=== PATIENT | female | born 1950 | race Hispanic/Latino ===

== ENCOUNTER 2019-09-27 17:02 | Emergency (ER) | payer OTHER ==
[2019-09-27] MEDS ORDERED: MORPHINE 2 MG/ML SYR ONE (18:04)
[2019-09-27] MEDS ORDERED: ONDANSETRON 4 MG/2 ML VIAL ONE (18:04)
[2019-09-27] MEDS ORDERED: NA CHLORIDE 0.9% 1,000 ML ONE (18:04)
[2019-09-27 18:12] LABS: Absolute Lymphocytes (CBC) 1.8 K/uL (0.7-4.9); Basophils % 0.6 % (0-1.3); Hematocrit 40.9 % (36.0-45.0); Lymphocytes % 15.3 % (15.3-44.8); MPV 8.1 fL (7.6-11.3)
[2019-09-27 18:21] LABS: Potassium 3.3 mmol/L (3.5-5.1)
--- NOTE | 2019-09-27 18:34 | RAD REPORT ---
EXAM DESCRIPTION: RAD - Femur Left - 09/27/2019 6:24 pm CLINICAL HISTORY: PAIN Fall, pain COMPARISON: No comparisons FINDINGS: No fracture or dislocation evident.
--- NOTE | 2019-09-27 18:35 | RAD REPORT ---
EXAM DESCRIPTION: RAD - Humerus Left - 09/27/2019 6:24 pm CLINICAL HISTORY: PAIN COMPARISON: No comparisons FINDINGS: Fracture is seen involving the left scapula inferiorly. Minimally displaced left lateral t horacic rib fracture also possible. The left humerus appears intact.
--- NOTE | 2019-09-27 19:01 | RAD REPORT ---
EXAM DESCRIPTION: CT - Head C Spine Cap Sage Cotter - 09/27/2019 6:43 pm CLINICAL HISTORY: Trauma, head and neck injury. Chest, abdomen and pelvis pain. Fall injury, back pain COMPARISON: No comparisons TECHNIQUE: CT head without contrast. CT cervical spine without contrast with coronal and sagittal reformatted images. CT chest, abdomen and pelvis with IV contrast (approximately 100 mL nonionic IV contrast) with jessica l and sagittal reformatted images of the spine. All CT scans are performed using dose optimization technique as appropriate and may include automated exposure control or mA/KV adjustment according to patient size. FINDINGS: CT HEAD WITHOUT CONTRAST: No intracranial hemorrhage, hydrocephalus or extra-axial fluid collection. Generalized brain atrophy is noted. No areas of brain edema or midline shift. The paranasal sinuses and mastoids are clear. The calvarium is intact. CT CERVICAL SPINE WITHOUT CONTRAST: No fracture or subluxation. The prevertebral soft tissues are normal in thickness. CT CHEST, ABDOMEN, PELVIS WITH CONTRAST: A fracture of the inferior aspect of the scapula is present with thickening of the adjacent tissues.I n addition, there is a fracture lateral fifth, sixth and seventh left ribs.No pneumothorax or pericar dial/pleural fluid. No evidence of intra-abdominal visceral injury, free fluid or free air. 17 mm right adrenal mass is p resent, nonspecific. No concerning pelvic findings. Moderate lumbosacral degenerative changes. Vacuum disc degeneration is present at L5-S1. IMPRESSION: Fracture of the inferior scapula with surrounding soft tissue thickening. Fracture left lateral fifth, sixth and seventh ribs without pneumothorax.
--- NOTE | 2019-09-27 20:39 | ER ---
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 Negative LOC. Care prior to arrival: None. 17:28 Acuity: HEATHER 4 hb 17:28 Method Of Arrival: Ambulatory 17:41 Transition of care: patient was not received from another setting of care. Onset of symptoms was September 27, 2019. Risk Assessment: Do you want to hurt yourself or someone else? Patient reports no desire to harm self or others. Initial Sepsis Screen: Does the patient meet any 2 criteria? No. Patient's initial sepsis screen is negative. Does the patient have a suspected source of infection? No. Patient's initial sepsis screen is negative. 17:41 Mechanism of Injury: Fall down 7 steps. Trauma event details: Injury occurred in the [facility], Injury occurred: at home. Injury occurred: September 27, 2019 Injury occurred at: 15:30. Triage Assessment: 19:28 General: Appears in no apparent distress. Behavior is calm, cooperative. Pain: rv Complains of pain in back and left arm and left leg and pelvis and buttocks. Trauma Activation: Not Applicable Physician: ED Physician; Name: ; Notified At: ; Arrived At: Physician: General Surgeon; Name: ; Notified At: ; Arrived At: Physician: Radiology; Name: ; Notified At: ; Arrived At: Physician: Respiratory; Name: ; Notified At: ; Arrived At: Physician: Lab; Name: ; Notified At: ; Arrived At: Historical: - Allergies: 17:30 Sulfa (Sulfonamide Antibiotics); hb - Immunization history:: Adult Immunizations up to date. - Coronavirus screen:: The patient has NOT traveled to [place] in the past 14 days. The patient has NOT had contact with known/suspected case of Coronavirus? Proceed with normal triage procedures. - Social history:: Smoking status: Patient denies any tobacco usage or history of. - Ebola Screening: : No symptoms or risks identified at this time. Screenin:42 Abuse screen: Denies threats or abuse. Denies injuries from another. Nutritional sv screening: No deficits noted. Tuberculosis screening: No symptoms or risk factors identified. Fall Risk None identified. Primary Survey: 17:41 NO uncontrolled hemorrhage observed. A: The patient is alert. Airway: patent, No sv supplemental oxygen in use on arrival. Oral cavity: clear, Trachea midline. Breathing/Chest: Respiratory pattern: regular, Respiratory effort: spontaneous, unlabored, Chest inspection: symmetrical rise and fall of the chest. Circulation: Pulses: palpable right radial artery and left radial artery. Skin color: pink, Skin temperature: warm, dry. Disability Alert. Exposure/Environment: All clothing and personal items were removed. Forensic evidence collection is not deemed to be indicated at this time. Items placed in patient belonging bag. There is no evidence of uncontrolled external bleeding. No obvious injuries are noted at this time. A warming method has been applied: A warm blanket has been provided to the patient. 18:00 Reassessment Airway Airway Patent Oxygen No O2 Oral cavity Clear Trachea Midline sv Breathing/Chest Respiratory pattern Regular Respiratory effort Spontaneous Unlabored Chest inspection Symmetrical Circulation Pulses Palpable Color [place] Temperature Warm Dry Disability Alert. Secondary Survey: 17:41 HEENT: No deficits noted. Gastrointestinal: No deficits noted. : No deficits noted. sv No signs and/or symptoms were reported regarding the genitourinary system. Musculoskeletal: Circulation, motion, and sensation intact. Range of motion: limited in left shoulder, left elbow and left hip Swelling present in left gluteal fold and left hip. Injury Description: Bruise sustained to left hip and left gluteal fold is purple. Assessment: 19:28 Reassessment: Patient appears in no apparent distress at this time. Patient is alert, rv oriented x 3, equal unlabored respirations, skin warm/dry/pink. PAIN IS BETTER COMPARED TO PRIOR. UPDATED ON THE PLAN OF CARE. CLAUDE ALREADY TALKED TO THE PATIENT. STILL AWAITING OFFICIAL RESULT OF RADIOLOGY. 20:56 Reassessment: Patient appears in no apparent distress at this time. Patient and/or rv family updated on plan of care and expected duration. Pain level reassessed. Patient is alert, oriented x 3, equal unlabored respirations, skin warm/dry/pink. GIVEN TRAMADOL BEFORE DISCHARGE. SLING APPLIED TO THE LEFT ARM. GIVEN INSTRUCTIONS FOR INCENTIVE SPIROMETER. CLAUDE EXPLAINED THE RESULTS AND PLAN OF CARE TO PATIENT AND RELATIVE. DISCHARGED AMBULATORY. REFUSED BEING DISCHARGE ON A WHEELCHAIR. Vital Signs: 17:29 BP 186 / 99; Pulse 89; Resp 16; Temp 98.4; Pulse Ox 100% on R/A; Weight 51.71 kg; hb Height 5 ft. 1 in. (154.94 cm); Pain 9/10; 18:08 BP 142 / 63; Pulse 107; Resp 16; Temp 98.2; Pulse Ox 100% ; sv 19:00 BP 156 / 59; Pulse 97; Resp 16; Pulse Ox 100% ; sv 20:00 BP 154 / 55; Pulse 95; Resp 19; Pulse Ox 100% on R/A; rv 20:55 BP 133 / 58; Pulse 95; Resp 18; Pulse Ox 100% ; rv 17:29 Body Mass Index 21.54 (51.71 kg, 154.94 cm) hb Sharron Coma Score: 17:42 Eye Response: spontaneous(4). Verbal Response: oriented(5). Motor Response: obeys sv commands(6). Total: 15. 18:08 Eye Response: spontaneous(4). Verbal Response: oriented(5). Motor Response: obeys sv commands(6). Total: 15. 19:00 Eye Response: spontaneous(4). Verbal Response: oriented(5). Motor Response: obeys sv commands(6). Total: 15. Trauma Score (Adult): 17:42 Eye Response: spontaneous(1); Verbal Response: oriented(1); Motor Response: obeys sv commands(2); Systolic BP: > 89 mm Hg(4); Respiratory Rate: 10 to 29 per min(4); [place] Score: 15; Trauma Score: 12 18:08 Eye Response: spontaneous(1); Verbal Response: oriented(1); Motor Response: obeys sv commands(2); Systolic BP: > 89 mm Hg(4); Respiratory Rate: 10 to 29 per min(4); [place] Score: 15; Trauma Score: 12 19:00 Eye Response: spontaneous(1); Verbal Response: oriented(1); Motor Response: obeys sv commands(2); Systolic BP: > 89 mm Hg(4); Respiratory Rate: 10 to 29 per min(4); [place] Score: 15; Trauma Score: 12 ED Course: 17:10 Patient arrived in ED. mr 17:29 Triage completed. hb 17:29 Arm band placed on. hb 17:34 Claude Benítez NP is PHCP. pm1 17:34 Carlos Aquino MD is Attending Physician. pm1 17:40 Radha Hanson, RN is Primary Nurse. sv 17:42 Patient has correct armband on for positive identification. Placed in gown. Bed in low sv position. Call light in reach. Door closed. Head of bed elevated. 17:42 Patient maintains SpO2 saturation greater than 95% on room air. sv 17:42 Thermoregulation: warm blanket given to patient. sv 17:55 Inserted saline lock: 20 gauge in right antecubital area, using aseptic technique. sv Blood collected. Flushed right antecubital with 5 ml normal saline. 18:00 Ice pack to injury. sv 18:[address] via stretcher. sv 18:15 Basic Metabolic Panel Sent. sv 18:15 CBC with Diff Sent. sv 18:15 Creatinine for Radiology Sent. sv 18:22 X-ray completed. Portable x-ray completed in exam room. Patient tolerated procedure az well. 18:22 Patient moved to radiology via stretcher. az 19:01 Patient moved back from radiology. sv 19:01 CT Traumagram (Head C Spine CAP W Con) Sent. sv 19:01 Femur Left XRAY Sent. sv 19:01 Humerus Left XRAY Sent. sv 19:10 Primary Nurse role handed off by Radha Hanson, NICKO sv 19:27 Vince Aquino, NICKO is Primary Nurse. rv Administered Medications: 18:00 Drug: NS 0.9% 1000 ml Route: IV; Rate: 1000 ml; Site: right antecubital; sv 20:51 Follow up: IV Status: Completed infusion; IV Intake: 1000ml rv 18:00 Drug: Zofran 4 mg Route: IVP; Site: right antecubital; sv 18:45 Follow up: Response: No adverse reaction sv 18:02 Drug: morphine 2 mg {Note: RASS1.} Route: IVP; Site: right antecubital; sv 18:45 Follow up: Response: No adverse reaction; Pain is decreased; RASS: Alert and Calm (0) sv 20:50 Drug: traMADol 50 mg Route: PO; rv 20:50 Follow up: Response: Medication administered at discharge.; RASS: Alert and Calm (0) rv Intake: 17:42 PO: 0ml; Total: 0ml. sv 18:08 PO: 0ml; Total: 0ml. sv 19:00 PO: 0ml; Total: 0ml. sv 20:51 IV: 1000ml; Total: 1000ml. rv Output: 17:42 Urine: 0ml; Total: 0ml. sv 18:08 Urine: 0ml; Total: 0ml. sv 19:00 Urine: 0ml; Total: 0ml. sv Outcome: 20:34 Discharge ordered by . pm1 21:00 Patient left the ED. rv Signatures: Radha Hanson, RN RN Nita Sprague Claude, CHAIR SPRINGER CHAIR SPRINGER pm1 Mariia Higgins RN RN hb Vicente, Ronaldo, RN RN rv Nina Marr Corrections: (The following items were deleted from the chart) 19:01 18:02 morphine 2 mg IVP in right antecubital sv sv
--- NOTE | 2019-09-27 20:39 | EDPHYS ---
Physician Documentation [facility] Name: Martine Farnsworth Age: 69 yrs Sex: Female : 1950 Arrival Date: 09/27/2019 Time: 17:10 Bed 4 Private MD: ED Physician Carlos Aquino HPI: 09/27 18:13 This 69 yrs old Female presents to ER via Ambulatory with complaints of Fall pm1 Injury. 18:13 Details of fall: The patient fell and struck wood abdoulaye. pm1 18:13 Onset: The symptoms/episode began/occurred 2 hour(s) ago. Associated injuries: The pm1 patient sustained left tricep, pain, left subscapular area, pain and tenderness, left gluteal fold, ecchymosis. The patient has not experienced similar symptoms in the past. It is unknown whether or not the patient has recently seen a physician. Patient was holding her 1 year old grandson while walking down the stairs with her right hand on the hand rail. He started wiggling so she held him with both hands and then she slipped down the stairs. She was able to spin herself around and went down 6-7 stairs on her back. Denies headache, head injury, neck pain, LOC. Grandson was not injured and he did not touch the stairs or floor. She presents to the ER with pain to left subscapular area and left humerus, and hemoatoma to left gluteal fold. Patient able to walk without any hip pain. Historical: - Allergies: 17:30 Sulfa (Sulfonamide Antibiotics); hb - Immunization history:: Adult Immunizations up to date. - Coronavirus screen:: The patient has NOT traveled to [place] in the past 14 days. The patient has NOT had contact with known/suspected case of Coronavirus? Proceed with normal triage procedures. - Social history:: Smoking status: Patient denies any tobacco usage or history of. - Ebola Screening: : No symptoms or risks identified at this time. ROS: 18:13 Constitutional: Negative for fever, chills, and weight loss, Neck: Negative for injury, pm1 pain, and swelling, Cardiovascular: Negative for chest pain, palpitations, and edema, Respiratory: Negative for shortness of breath, cough, wheezing, and pleuritic chest pain, Abdomen/GI: Negative for abdominal pain, nausea, vomiting, diarrhea, and constipation. 18:13 Neuro: Negative for headache, weakness, numbness, tingling, and seizure. 18:13 Back: Positive for pain at rest, of the left subscapular area. 18:13 MS/extremity: Positive for pain, of the left tricep, Negative for decreased range of motion, deformity. 18:13 Skin: Positive for ecchymosis, of the left gluteal fold, Negative for laceration(s). Exam: 18:13 Constitutional: This is a well developed, well nourished patient who is awake, alert, pm1 and in no acute distress. Head/Face: Normocephalic, atraumatic. Eyes: Pupils equal round and reactive to light, extra-ocular motions intact. Lids and lashes normal. Conjunctiva and sclera are non-icteric and not injected. Cornea within normal limits. Periorbital areas with no swelling, redness, or edema. ENT: Nares patent. No nasal discharge, no septal abnormalities noted. Tympanic membranes are normal and external auditory canals are clear. Oropharynx with no redness, swelling, or masses, exudates, or evidence of obstruction, uvula midline. Mucous membranes moist. Neck: Trachea midline, no thyromegaly or masses palpated, and no cervical lymphadenopathy. Supple, full range of motion without nuchal rigidity, or vertebral point tenderness. No Meningismus. Chest/axilla: Normal chest wall appearance and motion. Nontender with no deformity. No lesions are appreciated. Cardiovascular: Regular rate and rhythm with a normal S1 and S2. No gallops, murmurs, or rubs. Normal PMI, no JVD. No pulse deficits. Respiratory: Lungs have equal breath sounds bilaterally, clear to auscultation and percussion. No rales, rhonchi or wheezes noted. No increased work of breathing, no retractions or nasal flaring. Abdomen/GI: Soft, non-tender, with normal bowel sounds. No distension or tympany. No guarding or rebound. No evidence of tenderness throughout. 18:13 Back: pain, that is mild, of the left subscapular area, normal spinal alignment noted, vertebral tenderness, is not appreciated. 18:13 Musculoskeletal/extremity: Extremities: grossly normal except: noted in the left tricep: tenderness, ROM: full active range of motion, full passive range of motion, Circulation is intact in all extremities. 18:13 Skin: Appearance: normal except for affected area, ecchymosis, noted on the, left gluteal fold, that are moderate. 18:13 Neuro: Orientation: is normal, Motor: is normal, moves all fours, Gait: is steady, at a normal pace, without difficulty. Vital Signs: 17:29 BP 186 / 99; Pulse 89; Resp 16; Temp 98.4; Pulse Ox 100% on R/A; Weight 51.71 kg; hb Height 5 ft. 1 in. (154.94 cm); Pain 9/10; 18:08 BP 142 / 63; Pulse 107; Resp 16; Temp 98.2; Pulse Ox 100% ; sv 19:00 BP 156 / 59; Pulse 97; Resp 16; Pulse Ox 100% ; sv 20:00 BP 154 / 55; Pulse 95; Resp 19; Pulse Ox 100% on R/A; rv 20:55 BP 133 / 58; Pulse 95; Resp 18; Pulse Ox 100% ; rv 17:29 Body Mass Index 21.54 (51.71 kg, 154.94 cm) hb Sharron Coma Score: 17:42 Eye Response: spontaneous(4). Verbal Response: oriented(5). Motor Response: obeys sv commands(6). Total: 15. 18:08 Eye Response: spontaneous(4). Verbal Response: oriented(5). Motor Response: obeys sv commands(6). Total: 15. 19:00 Eye Response: spontaneous(4). Verbal Response: oriented(5). Motor Response: obeys sv commands(6). Total: 15. Trauma Score (Adult): 17:42 Eye Response: spontaneous(1); Verbal Response: oriented(1); Motor Response: obeys sv commands(2); Systolic BP: > 89 mm Hg(4); Respiratory Rate: 10 to 29 per min(4); [place] Score: 15; Trauma Score: 12 18:08 Eye Response: spontaneous(1); Verbal Response: oriented(1); Motor Response: obeys sv commands(2); Systolic BP: > 89 mm Hg(4); Respiratory Rate: 10 to 29 per min(4); [place] Score: 15; Trauma Score: 12 19:00 Eye Response: spontaneous(1); Verbal Response: oriented(1); Motor Response: obeys sv commands(2); Systolic BP: > 89 mm Hg(4); Respiratory Rate: 10 to 29 per min(4); [place] Score: 15; Trauma Score: 12 MDM: 17:35 Patient medically screened. pm1 19:04 Data reviewed: vital signs. Data interpreted: Pulse oximetry: on room air is 100 %. pm1 Interpretation: normal. 20:33 Counseling: I had a detailed discussion with the patient and/or guardian regarding: the pm1 historical points, exam findings, and any diagnostic results supporting the discharge/admit diagnosis, lab results, radiology results, the need for outpatient follow up, to return to the emergency department if symptoms worsen or persist or if there are any questions or concerns that arise at home. 09/27 17:45 Order name: Basic Metabolic Panel pm1 09/27 17:45 Order name: CBC with Diff pm1 09/27 17:45 Order name: Creatinine for Radiology pm1 09/27 18:24 Order name: Basic Metabolic Panel; Complete Time: 18:25 EDMS 09/27 18:24 Order name: CBC with Automated Diff; Complete Time: 18:25 EDMS 09/27 18:24 Order name: Creatinine (Radiology Only); Complete Time: 18:25 EDMS 09/27 17:45 Order name: CT Traumagram (Head C Spine CAP W Con) pm1 09/27 17:45 Order name: Humerus Left XRAY pm1 09/27 17:45 Order name: Femur Left XRAY pm1 09/27 20:37 Order name: INCENTIVE SPIROMETRY pm1 09/27 17:45 Order name: Labs collected and sent; Complete Time: 18:10 pm1 09/27 17:45 Order name: Ice pack; Complete Time: 18:09 pm1 09/27 18:50 Order name: Sling; Complete Time: 20:50 pm1 Administered Medications: 18:00 Drug: NS 0.9% 1000 ml Route: IV; Rate: 1000 ml; Site: right antecubital; sv 20:51 Follow up: IV Status: Completed infusion; IV Intake: 1000ml rv 18:00 Drug: Zofran 4 mg Route: IVP; Site: right antecubital; sv 18:45 Follow up: Response: No adverse reaction sv 18:02 Drug: morphine 2 mg {Note: RASS1.} Route: IVP; Site: right antecubital; sv 18:45 Follow up: Response: No adverse reaction; Pain is decreased; RASS: Alert and Calm (0) sv 20:50 Drug: traMADol 50 mg Route: PO; rv 20:50 Follow up: Response: Medication administered at discharge.; RASS: Alert and Calm (0) rv Disposition: 09/27/19 20:34 Discharged to Home. Impression: Fracture of unspecified part of scapula, left shoulder - inferior, Multiple fractures of ribs, left side. - Condition is Stable. - Discharge Instructions: Rib Fracture, Scapular Fracture, Incentive Spirometer. - Prescriptions for Tramadol 50 mg Oral Tablet - take 1 tablet by ORAL route every 8 hours As needed as needed; 15 tablet. - Medication Reconciliation Form, Thank You Letter, Antibiotic Education, Prescription Opioid Use form. - Follow up: Emergency Department; When: As needed; Reason: Worsening of condition. Follow up: Private Physician; When: 2 - 3 days; Reason: Recheck today's complaints, Continuance of care, Re-evaluation by your physician. - Problem is new. - Symptoms have improved. Addendum: 10/05/2019 07:40 Co-signature as Attending Physician, Carlos Aquino MD. m a2 Signatures: Dispatcher [employer] Radha Moody RN RN Claude Fraire, PASCUAL ENLISTED AIRCREW/AERIAL OBSERVER/GUNNER pm1 Mariia Higgins RN RN hb Alzahri, Mohammad, MD MD ma2 Vince Aquino RN RN rv Corrections: (The following items were deleted from the chart) 09/27 21:00 20:34 09/27/2019 20:34 Discharged to Home. Impression: Fracture of unspecified part of rv scapula, left shoulder - inferior; Multiple fractures of ribs, left side. Condition is Stable. Forms are Medication Reconciliation Form, Thank You Letter, Antibiotic Education, Prescription Opioid Use. Follow up: Emergency Department; When: As needed; Reason: Worsening of condition. Follow up: Private Physician; When: 2 - 3 days; Reason: Recheck today's complaints, Continuance of care, Re-evaluation by your physician. Problem is new. Symptoms have improved. pm1
[2019-09-27] MEDS ORDERED: TRAMADOL HCL 50 MG TAB ONE (20:44)
[2019-09-27 21:10] VITALS: O2SAT 100
[2019-09-27 21:11] VITALS: TEMP 98.2
[2019-09-27 21:22] VITALS: BP 133/58
== END 2019-09-27 21:00 | disposition home or self-care (01) ==
LOC: ER 17:02
DX: S42.102A Fracture of unspecified part of scapula, left shoulder, initial encounter for closed fracture (principal); S22.42XA Multiple fractures of ribs, left side, initial encounter for closed fracture; W01.198A Fall on same level from slipping, tripping and stumbling with subsequent striking against other object, initial encounter; Y93.01 Activity, walking, marching and hiking; Y92.9 Unspecified place or not applicable; Z88.2 Allergy status to sulfonamides
CPT/HCPCS: 96361; 85025; 80048; 36415; 70450; 72125; 71260; 74177; 73060; 73552; 96375; 96374; 99285; Q9967; J2270; J7030; J2405